=== PATIENT | female | born 2000 | race Hispanic/Latino ===

== ENCOUNTER 2021-08-26 21:10 | Emergency (ER) | payer OTHER, SELFPAY ==
[2021-08-26] MEDS ORDERED: Acetaminophen 500 MG TAB ONE (22:34)
== END 2021-08-26 23:06 | disposition home or self-care (01) ==
LOC: CSHERS 21:10
DX: S29.011A Strain of muscle and tendon of front wall of thorax, initial encounter (principal); R73.03 Prediabetes
CPT/HCPCS: 36415; 71045; 84484; 93005